=== PATIENT | male | born 1970 | race Caucasian/White ===

== ENCOUNTER 2017-08-22 20:16 | Emergency (ER) | payer MEDICARE, OTHER ==
[~2017-08-22] VITALS: Ht 185.4 cm; Wt 219.5 kg
--- NOTE | 2017-08-22 22:28 | ED.ADGEN ---
Past History Past Medical History: Anxiety, Depression, Diabetes Past Surgical History: No Surgical History Alcohol Use: None Drug Use: None Adult General Chief Complaint Chief Complaint " .. I ve been sick two weeks.. I just piss all the time.. I know I got Diabetes.. but I never took my Metaformin. .. I probably should see Dr. Ruth. " " My guts hurts'" " I hurt everywhere, too tired.. too fat.. too short of breath " HPI HPI Patient is a 47 year old male who presents with presents with above complaints, myalgia, malaise, arthralgia, fever, chills, coughing, abdomen pain, dyspnea, and generalized weakness. Patient denies any travel or history of immunosuppression. Patient denies any trauma. Patient is morbidly obese. Patient does have history of diabetes but had never taken his metformin as directed. Patient normally follows Dr. Ruth Review of Systems Review of Systems Constitutional: Complaints of fever or chills [] Eyes: Denies change in visual acuity, redness, or eye pain [] HENT: Complaints of nasal congestion or sore throat [] Respiratory: History of cough and shortness of breath [] Cardiovascular: History of tachycardia GI Hx. abdominal pain, nausea, vomiting. Denies bloody stools or diarrhea [] : Hx of dysuria and frequency Musculoskeletal: complaints of back pain and joint pain [] Integument: Denies rash or skin lesions [] Neurologic: Denies headache, focal weakness or sensory changes [] Endocrine: Hx. polyuria or polydipsia [] All other systems were reviewed and found to be within normal limits, except as documented in this note. Family History Family History Non-contributory Current Medications Current Medications Current Medications Medications (Trade) Dose Ordered Sig/Leobardo Start Time Stop Time Status Last Admin Dose Admin Aspirin (Children'S Aspirin) 324 mg 1X ONCE 08/22/17 23:15 08/22/17 23:25 DC 08/22/17 23:32 324 MG Enoxaparin Sodium (Lovenox 100mg Syringe) 100 mg STK-MED ONCE 08/23/17 01:06 08/23/17 01:07 DC Famotidine (Pepcid Vial) 20 mg 1X ONCE 08/23/17 00:30 08/23/17 01:36 DC 08/23/17 01:13 20 MG Insulin Human Regular (NovoLIN R) 100 unit STK-MED ONCE 08/23/17 01:16 08/23/17 01:17 DC Insulin Human Regular 150 unit/ Sodium Chloride 151.5 ml @ 0 mls/hr 1X ONCE 08/23/17 01:00 08/23/17 01:36 DC 08/23/17 01:00 5 MLS/HR Levofloxacin (Levaquin) 250 mg STK-MED ONCE 08/23/17 01:31 08/23/17 01:32 DC Magnesium Hydroxide (Milk Of Magnesia) 2,400 mg 1X ONCE 08/22/17 23:45 08/22/17 23:46 DC 08/22/17 23:39 2,400 MG Sodium Bicarbonate 50 meq 1X ONCE 08/23/17 00:30 08/23/17 01:37 DC 08/23/17 01:09 50 MEQ Sodium Chloride 150 ml @ As Directed STK-MED ONCE 08/23/17 01:16 08/23/17 01:17 DC Allergies Allergies Allergies Coded Allergies Type Severity Reaction Last Updated Verified No Known Drug Allergies 08/22/17 No Physical Exam Physical Exam Constitutional: Moderately acute distress, Ill in appearance. [] HENT: Normocephalic, atraumatic, bilateral external ears normal, oropharynx dry , no oral exudates, nose normal. [] Eyes: PERRLA, EOMI, conjunctiva normal, no discharge. [] Neck: Normal range of motion, no tenderness, supple, no stridor. [] Cardiovascular: Tachycardia rate regular rhythm, no murmur [] Lungs & Thorax: Bilateral breath sounds scattered wheezes on auscultation [] Abdomen: Bowel sounds normal, soft, no tenderness, no masses, no pulsatile masses. Morbidly obese. Skin: Warm, dry, no erythema, no rash. [] Back: No tenderness, no CVA tenderness. [] Extremities: generalized tenderness,distal cyanosis, no clubbing, ROM intact, distal edema. [] Neurologic: Alert and oriented X 3, normal motor function, decreased sensory function feet, no focal deficits noted. [] Psychologic: Affect anxious, judgement normal, mood depressed. Current Patient Data Vital Signs Vital Signs Date Time Temp Pulse Resp B/P (MAP) Pulse Ox O2 Delivery O2 Flow Rate FiO2 08/23/17 01:45 99.5 96 20 150/90 (110) 96 Room Air Lab Results Laboratory Tests Test 08/22/17 21:50 08/22/17 23:00 08/23/17 00:20 Urine Collection Type Void Urine Color Yellow Urine Clarity Hazy Urine pH 5.0 Urine Specific [place] 1.010 Urine Protein 30 mg/dl (NEG-TRACE) Urine Glucose (UA) 500 mg/dL (NEG) Urine Ketones (Stick) >=160 mg/dL (NEG) Urine Blood Mod (NEG) Urine Nitrite Neg (NEG) Urine Bilirubin Neg (NEG) Urine Urobilinogen Dipstick 0.2 mg/dL (0.2 mg/dL) Urine Leukocyte Esterase Neg (NEG) Urine RBC 1-2 /HPF (0-2) Urine WBC 0 /HPF (0-4) Urine Squamous Epithelial Cells Mod /LPF Urine Bacteria 0 /HPF (0-FEW) Urine Opiates Screen Neg (NEG) Urine Methadone Screen Neg (NEG) Urine Barbiturates Neg (NEG) Urine Phencyclidine Screen Neg (NEG) Urine Amphetamine/Methamphetamine Neg (NEG) Urine Benzodiazepines Screen Neg (NEG) Urine Cocaine Screen Neg (NEG) Urine Cannabinoids Screen Neg (NEG) Urine Ethyl Alcohol Neg (NEG) White Blood Count 13.6 x10^3/uL (4.0-11.0) H Red Blood Count 5.95 x10^6/uL (4.30-5.70) H Hemoglobin 19.2 g/dL (13.0-17.5) H Hematocrit 55.6 % (39.0-53.0) H Mean Corpuscular Volume 94 fL (79-100) Mean Corpuscular Hemoglobin 32 pg (25-35) Mean Corpuscular Hemoglobin Concent 35 g/dL (31-37) Red Cell Distribution Width 14.2 % (11.5-14.5) Platelet Count 220 x10^3/uL (140-400) Neutrophils (%) (Auto) 78 % (31-73) H Lymphocytes (%) (Auto) 15 % (24-48) L Monocytes (%) (Auto) 7 % (0-9) Eosinophils (%) (Auto) 0 % (0-3) Basophils (%) (Auto) 0 % (0-3) Neutrophils # (Auto) 10.6 x10^3uL (1.8-7.7) H Lymphocytes # (Auto) 2.0 x10^3/uL (1.0-4.8) Monocytes # (Auto) 0.9 x10^3/uL (0.0-1.1) Eosinophils # (Auto) 0.0 x10^3/uL (0.0-0.7) Basophils # (Auto) 0.1 x10^3/uL (0.0-0.2) Segmented Neutrophils % 64 % (35-66) Band Neutrophils % 5 % (0-9) Lymphocytes % 21 % (24-48) L Monocytes % 7 % (0-10) Eosinophils % 1 % (0-5) Platelet Estimate Adequate (ADEQUATE) Prothrombin Time 11.1 SEC (9.4-11.4) Prothrombin Time INR 1.1 (0.9-1.1) PTT 25 SEC (23-33) D-Dimer (Apryl) 1.12 mg/L (0.00-0.50) H Sodium Level 126 mmol/L (136-145) L Potassium Level 3.7 mmol/L (3.5-5.1) Chloride Level 91 mmol/L (98-107) L Carbon Dioxide Level 9 mmol/L (21-32) *L Anion Gap 26 (6-14) H Blood Urea Nitrogen 13 mg/dL (8-26) Creatinine 1.6 mg/dL (0.7-1.3) H Estimated GFR (Cockcroft-Gault) 47.0 Glucose Level 390 mg/dL (70-99) H Calcium Level 9.1 mg/dL (8.5-10.1) Magnesium Level 2.2 mg/dL (1.8-2.4) Total Bilirubin 0.6 mg/dL (0.2-1.0) Direct Bilirubin 0.2 mg/dL (0.0-0.2) Aspartate Amino Transferase (AST) 30 U/L (15-37) Alanine Aminotransferase (ALT) 25 U/L (16-63) Alkaline Phosphatase 127 U/L (46-116) H Creatine Kinase 349 U/L (39-308) H Creatine Kinase MB (Mass) 3.9 ng/mL (0.0-3.6) H Creatine Kinase MB Relative Index 1.1 % (0-4) Troponin I Quantitative < 0.017 ng/mL (0-0.055) MM-Ouv-I-Type Natriuretic Peptide 39 pg/mL (0-124) Total Protein 8.0 g/dL (6.4-8.2) Albumin 3.6 g/dL (3.4-5.0) Lipase 545 U/L (73-393) H Influenza Type A (Rapid) Negative (NEGATIVE) Influenza Type B (Rapid) Negative (NEGATIVE) Group A Streptococcus Rapid Negative (NEGATIVE) Blood pH 7.11 (7.35-7.46) *L Blood Gas PCO2 18 mmHg (35-46) *L Blood Gas PO2 112 mmHg (80-100) H Blood Gas HCO3 6 mmol/L (21-28) L Arterial Bld O2 Saturation (Calc) 97 % (92-99) FiO2 21 % EKG EKG My interpretation of EKG shows a sinus rhythm at 93 bpm. Bundle-branch block right-sided. Abnormal axis[] Radiology/Procedures Radiology/Procedures My interpretation of chest x-ray shows cardiomegaly and basilar atelectasis.[] Course & Med Decision Making Course & Med Decision Making Pertinent Labs and Imaging studies reviewed. (See chart for details). Discussed presentation, testing and treatment plan with Dr. Henson- Will accept pt in transfer to [facility], for possible CT and further eval. [] Final Impression Final Impression 1. Weakness[] 2. Diabetic Ketoacidosis 3. Obesity Hypoventilation Syndrome 4. Pancreatitis 5. Morbid Obesity 6. Elevated D -dimer 7. Dehydration 8. Leukocytosis 9. Hyponatremia 10.RT. Bundle Branch Block Problems: Dragon Disclaimer Dragon Disclaimer This electronic medical record was generated, in whole or in part, using a voice recognition dictation system. YESENIA AQUINO MD Aug 22, 2017 22:28
[2017-08-22 22:47] LABS: BARBITURATES NEG (NEG); BENZODIAZEPINES NEG (NEG); CANNABINOIDS NEG (NEG); COCAINE NEG (NEG); METHADONE NEG (NEG); OPIATES NEG (NEG); PHENCYCLIDINE NEG (NEG)
[2017-08-22 22:49] LABS: AMPHETAMINE/METHAMPHETAMINE NEG (NEG)
[2017-08-22 22:52] LABS: CLARITY,URINE HAZY; COLOR,URINE YELLOW; GLUCOSE,URINE 500 mg/dL (NEG)
[2017-08-22 22:53] LABS: BILIRUBIN,URINE NEG (NEG); NITRITE,URINE NEG (NEG); UROBILINOGEN,URINE 0.2 mg/dL (0.2 mg/dL)
[2017-08-22 22:54] LABS: BACTERIA,URINE 0 /HPF (0-FEW); SQUAMOUS EPITHELIAL CELL,UR MOD /LPF; WBC,URINE 0 /HPF (0-4)
--- NOTE | 2017-08-22 22:56 | EKG ---
[address] [address] Test Date: 2017-08-22 Test Time: 22:53:33 Pat Name: JAKOB GREENE Department: Room: Gender: M Administrative Aide: SHANA : 1970 Requested By: YESENIA AQUINO Order Number: [id number] Reading MD: Anton Rodriguez Measurements Intervals [place] Rate: 93 P: -36 [place]: 156 QRS: -139 QRSD: 170 T: 28 QT: 384 QTc: 480 Interpretive Statements SINUS RHYTHM ABNORMAL RIGHT SUPERIOR AXIS DEVIATION RIGHT BUNDLE BRANCH BLOCK RVH WITH REPOLARIZATION ABNORMALITY ABNORMAL ECG RI6.01 Unconfirmed report No previous ECG available for comparison Electronically Signed On 09-04-2017 11:03:12 [employer] WORK[employer] by Anton Rodriguez
[2017-08-22] MEDS ORDERED: ASPIRIN 81 MG TAB.CHEW PO ONE (23:15)
[2017-08-22] MEDS ORDERED: IV NORMAL SALINE 1,000ML 1,000 ML IV SCH (23:15)
[2017-08-22 23:18] LABS: BASO # 0.1 x10^3/uL (0.0-0.2); BASO % 0 % (0-3); EOS % 0 % (0-3); HEMATOCRIT 55.6 % (39.0-53.0); HEMOGLOBIN 19.2 g/dL (13.0-17.5); LYMPH % 15 % (24-48); MEAN CORPUSCULAR HEMOGLOBIN 32 pg (25-35); MEAN CORPUSCULAR HGB CONC 35 g/dL (31-37); MEAN CORPUSCULAR VOLUME 94 fL (79-100); MONO # 0.9 x10^3/uL (0.0-1.1); MONO % 7 % (0-9); NEUT # 10.6 x10^3uL (1.8-7.7); NEUT % 78 % (31-73); PLATELET COUNT 220 x10^3/uL (140-400); RED BLOOD COUNT 5.95 x10^6/uL (4.30-5.70); RED CELL DISTRIBUTION WIDTH 14.2 % (11.5-14.5); WHITE BLOOD COUNT 13.6 x10^3/uL (4.0-11.0)
[2017-08-22] MEDS ORDERED: MAGNESIUM HYDROXIDE 2,400 MG/30 ML ORAL.SUSP. ONE (23:36)
[2017-08-22 23:44] LABS: INFLUENZA A PATIENT NEGATIVE (NEGATIVE); INFLUENZA B PATIENT NEGATIVE (NEGATIVE)
[2017-08-22] MEDS ORDERED: MAGNESIUM HYDROXIDE 2,400 MG/30 ML ORAL.SUSP. PO ONE (23:45)
[2017-08-22 23:53] LABS: ALBUMIN 3.6 g/dL (3.4-5.0); CALCIUM 9.1 mg/dL (8.5-10.1); CREATININE 1.6 mg/dL (0.7-1.3); DIRECT BILIRUBIN 0.2 mg/dL (0.0-0.2); MAGNESIUM 2.2 mg/dL (1.8-2.4); POTASSIUM 3.7 mmol/L (3.5-5.1); TOTAL BILIRUBIN 0.6 mg/dL (0.2-1.0)
[2017-08-23] MEDS ORDERED: IV NORMAL SALINE 1,000ML 1,000 ML IV ONE (00:15)
[2017-08-23] MEDS ORDERED: SODIUM BICARB ADULT 8.4% 50 MEQ/50 ML DISP.SYRIN. IV ONE (00:30)
[2017-08-23] MEDS ORDERED: FAMOTIDINE 20 MG/2 ML VIAL IVP ONE (00:30)
[2017-08-23 00:32] LABS: BGAS PH 7.11 (7.35-7.46)
[2017-08-23] MEDS ORDERED: INSULIN REGULAR 150 UNIT in 0.9 % SODIUM CHLORIDE 150ML 150 ML IV ONE (01:00)
[2017-08-23] MEDS ORDERED: ENOXAPARIN ** NOTE DOSE ** SYRINGE SQ ONE ×2 (01:06→01:15)
[2017-08-23] MEDS ORDERED: INSULIN REGULAR 100 UNIT/ML 10ML VIAL. ONE (01:16)
[2017-08-23] MEDS ORDERED: 0.9 % SODIUM CHLORIDE 150ML 150 ML ONE (01:16)
[2017-08-23] MEDS ORDERED: levoFLOXacin 250 MG TABLET ONE (01:31)
[2017-08-23 01:33] LABS: % BANDS 5 % (0-9); % EOS 1 % (0-5); % LYMPHS 21 % (24-48); % MONOS 7 % (0-10); % SEGS 64 % (35-66)
[2017-08-23 01:36] LABS: PLT ESTIMATE ADEQUATE (ADEQUATE)
[2017-08-23 01:45] VITALS: BP 150/90
[2017-08-23] MEDS ORDERED: levoFLOXacin 500 MG TABLET PO ONE (01:45)
--- NOTE | 2017-08-23 09:42 | RAD ---
Single view chest 08/22/2017 Clinical indication: Sporadic Sharp chest pain. Comparison: Single view chest 11/15/2010. Findings: Examination is limited due to portable technique. Heart size is upper limits of normal without pulmonary venous congestion. There is possible partial atelectasis of the right middle lobe with obscuration of the right heart border. No pleural effusion or pneumothorax. Impression: Limited exam due to portable technique. There is possible partial right middle lobe atelectasis of indeterminate etiology. Repeat 2 view chest radiograph or CT is recommended. These results were discussed with Dr. Garcia of the emergency service by telephone at 9:40am 08/23/[address] Jasiel Sherman
== END 2017-08-23 01:47 | disposition short-term general hospital (02) ==
LOC: ER 20:16
DX: R53.1 Weakness (principal); E11.10 Type 2 diabetes mellitus with ketoacidosis without coma; E66.2 Morbid (severe) obesity with alveolar hypoventilation; K85.90 Acute pancreatitis without necrosis or infection, unspecified; R79.1 Abnormal coagulation profile; E86.0 Dehydration; D72.829 Elevated white blood cell count, unspecified; E87.1 Hypo-osmolality and hyponatremia; I45.10 Unspecified right bundle-branch block; F41.9 Anxiety disorder, unspecified; F32.9 Major depressive disorder, single episode, unspecified; Z68.44 Body mass index [BMI] 60.0-69.9, adult
CPT/HCPCS: 36415; 36600; 71010; 80048; 80076; 80307; 81001; 82553; 82803; 82947; 83690; 83735; 83880; 84443; 84484; 85007; 85025; 85379; 85610; 85730; 87070; 87804; 87880; 93005; 96361; 96365; 96372; 96375; 99285; J1650; J1815; S0028; G0479; J7030

== ENCOUNTER → 2021-01-02 | Outpatient (CLI) | payer MEDICARE ==
--- NOTE | 2021-01-02 12:21 | RAD ---
EXAM: Bilateral ankles, 3 views. HISTORY: Pain. COMPARISON: None. FINDINGS: 3 views of both ankles are obtained. There is no acute fracture, dislocation or subluxation . The ankle mortises are intact. There is no osteochondral lesion. There is diffuse soft tissue promi nence due to body habitus or swelling. There is a corticated ossicle along the dorsal aspect of the r ight navicular bone. IMPRESSION: No acute osseous finding. Electronically signed by: Ana Rodney MD (01/02/2021 12:19 PM) [id number]
== END ==
LOC: RAD 11:55
PROVIDERS: ATTEND Podiatrist Foot & Ankle Surgery
DX: M25.572 Pain in left ankle and joints of left foot (principal); M25.571 Pain in right ankle and joints of right foot
CPT/HCPCS: 73610

== ENCOUNTER → 2021-01-02 | Outpatient (CLI) | payer MEDICARE ==
--- NOTE | 2021-01-02 12:26 | RAD ---
EXAM: Right knee, 2 views. HISTORY: Pain. COMPARISON: None. FINDINGS: 2 views of the right knee are obtained. There is severe medial compartment joint space narr owing with subchondral sclerosis and spurring. There is mild lateral and patellofemoral compartment s purring. There is a small joint effusion. IMPRESSION: Severe medial and mild lateral and patellofemoral compartment osteoarthritis of the right knee with small joint effusion. Electronically signed by: Ana Rodney MD (01/02/2021 12:24 PM) [id number]
== END ==
LOC: RAD 11:51
PROVIDERS: ATTEND Physician Assistant
DX: M17.11 Unilateral primary osteoarthritis, right knee (principal); M25.461 Effusion, right knee
CPT/HCPCS: 73560

== ENCOUNTER 2021-05-08 16:26 | Emergency (ER) | payer MEDICARE ==
[~2021-05-08] VITALS: Ht 175.3 cm; Wt 218.0 kg
[2021-05-08 16:58] VITALS: BP 150/90
--- NOTE | 2021-05-08 20:15 | RAD ---
EXAMINATION: Chest radiograph. VIEWS: Single view COMPARISON: 08/22/2017 INDICATION:50 years, Male, cough. FINDINGS: Normal cardiomediastinal silhouette. Subtle airspace opacity in the left perihilar region. No pleural effusion or pneumothorax. No acute osseous process. IMPRESSION: Subtle airspace opacity in the left perihilar region, concerning for pneumonia. Electronically signed by: Annabel Gonzalez MD (05/08/2021 8:12 PM) [facility]
[2021-05-08] MEDS ORDERED: AZIT250T6 PO (20:38)
--- NOTE | 2021-05-08 20:41 | PHYS DOC ---
Past History Past Medical History: Anxiety, Depression, Diabetes Additional Past Medical Histor: sleep apnea, RBBB, Obesity (ALYSSA MANUEL APRN) Past Surgical History: No Surgical History (ALYSSA MANUEL APRN) Alcohol Use: None Drug Use: None (ALYSSA MANUEL APRN) General Adult EDM: Chief Complaint: COUGH HPI: HPI: Patient is a 50-year-old male who presents with cough, loss of taste and smell. Patient's denying fever. Patient has an increase in shortness of breath with ambulation. Patient is morbidly obese. Patient has refusing a Covid swab and has not been vaccinated. Patient states "I just want a chest x-ray to make sure you do not have pneumonia". Denies chest pain or shortness of breath. Alert and oriented and hemodynamically stable .history of anxiety, diabetes, depressio n. (ALYSSA MANUEL APRN) Review of Systems: Review of Systems: Constitutional: Denies fever or chills Eyes: Denies change in visual acuity HENT: Denies nasal congestion or sore throat Respiratory: Reports cough. Denies shortness of breath Cardiovascular: Denies chest pain or edema GI: Denies abdominal pain, nausea, vomiting, bloody stools or diarrhea : Denies dysuria Musculoskeletal: Denies back pain or joint pain Integument: Denies rash Neurologic: Denies headache, focal weakness or sensory changes Endocrine: Denies polyuria or polydipsia Lymphatic: Denies swollen glands Psychiatric: Denies depression or anxiety (ALYSSA MANUEL APRN) Current Medications: Current Meds: Current Medications Medications (Trade) Dose Ordered Sig/Leobardo Start Time Stop Time Status Last Admin Dose Admin Albuterol Sulfate (Ventolin Hfa Inhaler) 1 puff 1X ONCE 05/08/21 19:45 05/08/21 19:57 DC Dexamethasone Sodium Phosphate (Decadron) 10 mg 1X ONCE 05/08/21 19:45 05/08/21 19:57 DC (ALYSSA MANUEL APRN) Allergies: Allergies: Allergies Coded Allergies Type Severity Reaction Last Updated Verified No Known Drug Allergies 08/22/17 No (ALYSSA MANUEL APRN) Physical Exam: PE: Constitutional: Well developed, well nourished, no acute distress, non-toxic appearance. [] HENT: Normocephalic, atraumatic, bilateral external ears normal, oropharynx moist, no oral exudates, nose normal. [] Eyes: PERRLA, EOMI, conjunctiva normal, no discharge. [] Neck: Normal range of motion, no tenderness, supple, no stridor. [] Cardiovascular:Heart rate regular rhythm, no murmur [] Lungs & Thorax: Bilateral breath sounds clear to auscultation [] Abdomen: Bowel sounds normal, soft, no tenderness, no masses, no pulsatile masses. [] Skin: Warm, dry, no erythema, no rash. [] Back: No tenderness, no CVA tenderness. [] Extremities: No tenderness, no cyanosis, no clubbing, ROM intact, no edema. [] Neurologic: Alert and oriented X 3, normal motor function, normal sensory function, no focal deficits noted. [] Psychologic: Affect normal, judgement normal, mood normal. [] (ALYSSA MANUEL APRN) Current Patient Data: Vital Signs: Vital Signs Date Time Temp Pulse Resp B/P (MAP) Pulse Ox O2 Delivery O2 Flow Rate FiO2 05/08/21 18:30 79 95 05/08/21 16:58 97.9 18 150/90 Room Air (ALYSSA MANUEL APRN) EKG: EKG: [] (ALYSSA MANUEL APRN) Radiology/Procedures: Radiology/Procedures: []EXAMINATION: Chest radiograph. VIEWS: Single view COMPARISON: 08/22/2017 INDICATION:50 years, Male, cough. FINDINGS: Normal cardiomediastinal silhouette. Subtle airspace opacity in the left perihilar region. No pleural effusion or pneumothorax. No acute osseous process. IMPRESSION: Subtle airspace opacity in the left perihilar region, concerning for pneumonia. Electronically signed by: Annabel Gonzalez MD (05/08/2021 8:12 PM) [facility] (ALYSSA MANUEL APRN) Heart Score: C/O Chest Pain: No Risk Factors: Risk Factors: DM, Current or recent (<one month) smoker, HTN, HLP, family history of CAD, obesity. Risk Scores: Score 0 - 3: 2.5% MACE over next 6 weeks - Discharge Home Score 4 - 6: 20.3% MACE over next 6 weeks - Admit for Clinical Observation Score 7 - 10: 72.7% MACE over next 6 weeks - Early Invasive Strategies (ALYSSA MANUEL APRN) Course & Med Decision Making: Course & Med Decision Making Pertinent Labs and Imaging studies reviewed. (See chart for details) [] 50-year-old male presents with cough, loss of taste and smell. Patient is morbidly obese and unable to walk to the bathroom on his own without becoming extremely short of air. Patient is refusing Covid test. Patient is not vaccinated. Afebrile. Hemodynamically stable. Chest x-ray is concerning for pneumonia. Patient sent home with prescription for azithromycin. First dose given in the emergency room. Patient also given albuterol inhaler and dexa methasone while in the ED. Discussed with patient importance of quarantining and not spreading illness to others. Advised patient to get a pulse ox to use at home. If oxygen drops below 90% he needs to return to the ER. Patient's blood pressure was slightly elevated 170s/ 107. Patient is refusing treatment for blood pressure. Patient sees Emeka Oakley. Patient should follow up with PCP. Patient also given incentive spirometer to use at home. Patient states that he is unable to get up and move around at home to his to his lymphedema. patient states he understands discharge and quarantining instructions patient is hemodynamically stable upon disposition. (ALYSSA MANUEL APRN) Dragon Disclaimer: Vivien Disclaimer: This electronic medical record was generated, in whole or in part, using a voice recognition dictation system. (ALYSSA MANUEL APRN) Departure Departure: Impression: Primary Impression: Pneumonia Qualified Codes: J18.9 - Pneumonia, unspecified organism Additional Impression: Morbidly obese Disposition: 01 HOME / SELF CARE / HOMELESS Referrals: BRITTANY OAKLEY (PCP) Patient Instructions: Pneumonia, Adult, [id number] Additional Instructions: You were seen in the emergency room for cough and loss of taste and smell. You refused a Covid swab. Your chest x-ray was concerning for pneumonia. I am sending you home with a prescription for azithromycin. Please quarantine to avoid spreading illness to others. If you start running a fever please take Tylenol and ibuprofen. I would suggest getting a pulse oximeter to use at home. If your oxygen level falls below 90% you would want to be reseen for further management. Drink plenty of fluids. Try to stay up and moving around to avoid worsening of symptoms. Return to the emergency room if you have worsening symptoms or concerns. EMERGENCY DEPARTMENT GENERAL DISCHARGE INSTRUCTIONS Thank you for coming to [facility] (ED) today and trusting us with you care. We trust that you had a positivie experience in our Emergency Department. If you wish to speak to the department management, you may call the director at [phone]. YOUR FOLLOW UP INSTRUCTIONS ARE FOLLOWS: 1. Do you have a private Doctor? If you do not have a private doctor, please ask for a resource list of physicians or clinics that may be able to assist you with follow up care. 2. The Emergency Physician has interpreted your x-rays. The X-Ray specialist will also review them. If there is a change in the findings, you will be notified in 48 hours when at all possible. 3. A lab test or culture has been done, your results will be reviewed and you will be notified if you need a change in treatment. ADDITIONAL INSTRUCTIONS AND INFORMATION: 1. Your care today has been supervised by a physician who is specially trained in emergency care. Many problems require more than one evaluation for a complete diagnosis and treatment. We recommend that you schedule your follow up appointment as recommended to ensure complete treatment of you illness or injury. If you are unable to obtain follow up care and continue to have a problem, or if your condition worsens, we recommend that you return to the ED. 2. We are not able to safely determine your condition over the phone nor are we able to give sound medical advice over the phone. For these safety reasons, if you call for medical advice we will ask you to come to the ED for further evaluation. 3. If you have any questions regarding these discharge instructions please call the ED at [phone]. SAFETY INFORMATION: In the interest of safety, wellness, and injury prevention; we encourage you to wear your sealbelt, if you smoke; quite smoking, and we encourage family to use a protective helmet for bicycling and other sporting events that present an increased risk for head injury. IF YOUR SYMPTOMS WORSEN OR NEW SYMPTOMS DEVELOP, OR YOU HAVE CONCERNS ABOUT YOUR CONDITION; OR IF YOUR CONDITION WORSENS WHILE YOU ARE WAITING FOR YOUR FOLLOW UP APPOINTMENT; EITHER CONTACT YOUR PRIMARY CARE DOCTOR, THE PHYSICIAN WHOSE NAME AND NUMBER YOU WERE GIVEN, OR RETURN TO THE ED IMMEDIATELY. Scripts Azithromycin (AZITHROMYCIN TABLET) 250 Mg Tablet 1 PKG PO UD for pneumonia for 5 Days, #6 TAB 0 Refills 2 the first day followed by 1 for days 2-5 Prov: ALYSSA MANUEL APRN 05/08/21 Attending Signature Attending Signature I have participated in the care of this patient and I have reviewed and agree with all pertinent clinical information above including history, exam, and recommendations. (YESENIA AQUINO MD) ALYSSA MANUEL APRN May 08, 2021 20:41 YESENIA AQUINO MD May 13, 2021 08:17
[2021-05-08] MEDS: AZITHROMYCIN 250 MG TABLET. PO ONE (20:49)
[2021-05-08] MEDS: ALBUTEROL SULFATE 8GM INHALER. INH ONE (20:49)
[2021-05-08] MEDS: DEXAMETHASONE SOD PHOS 10 MG/ML VIAL. PO ONE (20:49)
== END 2021-05-08 21:10 | disposition home or self-care (01) ==
LOC: ER 16:26
DX: J18.9 Pneumonia, unspecified organism (principal); E66.01 Morbid (severe) obesity due to excess calories; E11.9 Type 2 diabetes mellitus without complications; Z68.45 Body mass index [BMI] 70 or greater, adult
CPT/HCPCS: 71045; 99283; J1100

== ENCOUNTER → 2021-05-14 | Outpatient (CLI) | payer MEDICARE ==
[2021-05-08 16:58] VITALS: BP 150/90
[~2021-05-14] MED LIST: AZIT250T6 PO
--- NOTE | 2021-05-14 16:06 | RAD ---
AP and Lateral Views of the Chest 05/14/2021 11:48 AM Indication: Reason: COUGH, COVID PNEUMOINA / Spl. Instructions: / History: Comparison: Chest radiograph May 08, 2021 Findings: There is no focal consolidation or infiltrate identified. Heart size appears normal. There is no evidence of pneumothorax or pleural effusion. No acute osseous abnormalities are identified. Impression: No evidence of acute cardiopulmonary process. Electronically signed by: Wilbert Hart MD (05/14/2021 4:03 PM) [id number]
== END ==
LOC: RAD 11:44
PROVIDERS: ATTEND Physician Assistant
DX: R05 Cough (principal)
CPT/HCPCS: 71046